=== PATIENT | female | born 1975 | race Caucasian/White ===

== ENCOUNTER → 2016-08-10 | Outpatient (CLI) | payer BC ==
--- NOTE | 2016-08-10 10:56 | MA ---
Screening Digital Mammogram With iCAD Analysis Clinical Indications: Routine screening. Technique: Standard cephalocaudal projections are obtained. Digital breast tomosynthesis was performe d in the MLO projection with reconstruction at 1.0 mm slice thickness and composite MLO views reconst ructed. This examination is processed by the iCAD computer aided detection system. Comparison: July 2015. Breast density: Type D: Extremely dense. Findings: CAD was reviewed. No masses, suspicious calcifications or secondary signs of malignancy are seen. There has been no significant change in the appearance of either breast. Impression: Negative mammogram. BI-RADS 1. Recommendation: Routine mammographic screening in one year as long as physical examination is negativ e in this patient with extremely dense breast parenchyma. [facility] will send a result letter to the patient. Negative mammography should not preclude additional workup of a clinically suspicious finding. The patient's information is entered into a reminder system with a target due date for her next mammo gram.
== END ==
LOC: FIMAGING 09:26
DX: Z12.31 Encounter for screening mammogram for malignant neoplasm of breast (principal)
CPT/HCPCS: G0202

== ENCOUNTER → 2017-02-14 | Outpatient (CLI) | payer BC ==
[~2017-02-14] MED LIST: GADOBUTROL 10 ML VIAL IVP ONE
== END ==
LOC: FIMAGING 09:42
DX: H05.221 Edema of right orbit (principal)
CPT/HCPCS: A9585

== ENCOUNTER → 2017-05-17 | Outpatient (CLI) | payer BC | LOC: FIMAGING 10:09 | PROVIDERS: ATTEND Neurological Surgery | DX: R22.42 Localized swelling, mass and lump, left lower limb (principal) | CPT/HCPCS: A9585 ==

== ENCOUNTER → 2017-05-28 | Outpatient (CLI) | payer BC | LOC: FIMAGING 12:54 | PROVIDERS: ATTEND Physician Assistant | DX: M54.16 Radiculopathy, lumbar region (principal); R93.7 Abnormal findings on diagnostic imaging of other parts of musculoskeletal system ==

== ENCOUNTER → 2017-06-01 | Outpatient (CLI) | payer BC | LOC: FIMAGING 13:24 | PROVIDERS: ATTEND Physician Assistant | DX: R93.8 Abnormal findings on diagnostic imaging of other specified body structures (principal) ==

== ENCOUNTER → 2017-09-01 | Outpatient (CLI) | payer BC | LOC: FIMAGING 11:03 | PROVIDERS: ATTEND Internal Medicine | DX: Z12.31 Encounter for screening mammogram for malignant neoplasm of breast (principal) ==

== ENCOUNTER → 2018-03-02 | Outpatient (CLI) | payer BC | LOC: FIMAGING 08:02 | PROVIDERS: ATTEND Physician Assistant | DX: K76.9 Liver disease, unspecified (principal); M51.36 Other intervertebral disc degeneration, lumbar region ==